=== PATIENT | female | born 1960 | race Caucasian/White ===

== ENCOUNTER 2019-10-12 18:25 | Emergency (ER) | payer MEDICAID, OTHER ==
[~2019-10-12] VITALS: Ht 152.4 cm; Wt 68.5 kg
[2019-10-12] MEDS ORDERED: IBUPROFEN 600 MG TABLET PO ONE (19:00)
[2019-10-12] MEDS ORDERED: HYDROCODONE/APAP 5-325MG TABLET PO ONE (19:00)
[2019-10-12] MEDS ORDERED: IBUPROFEN 600 MG TABLET ONE (19:03)
[2019-10-12] MEDS ORDERED: HYDROCODONE/APAP 5-325MG TABLET ONE (19:03)
--- NOTE | 2019-10-12 20:14 | NUR ---
Patient discharged to home in stable conditon with family taking patient home. Written and verbal after care instructions given. Patient verbalizes understanding of instructions. Walked out of ER with no distress noted.
[2019-10-12 20:15] VITALS: BP 135/77
== END 2019-10-12 20:15 | disposition home or self-care (01) ==
LOC: ER 18:26
DX: S20.212A Contusion of left front wall of thorax, initial encounter (principal); E78.5 Hyperlipidemia, unspecified; V43.52XA Car driver injured in collision with other type car in traffic accident, initial encounter; Y93.89 Activity, other specified; Y92.410 Unspecified street and highway as the place of occurrence of the external cause; Y99.8 Other external cause status
CPT/HCPCS: 71046; A4663

== ENCOUNTER 2020-04-25 12:33 | Emergency (ER) | payer MEDICAID, OTHER ==
[~2020-04-25] VITALS: Ht 154.9 cm; Wt 65.8 kg
[2020-04-25] MEDS ORDERED: LIDOCAINE VISCUS 2% 15 ML UDC MM ONE (13:00)
[2020-04-25] MEDS ORDERED: MAG HYDROX/AL HYDROX/SIMETH 30 ML LIQUID UDC PO ONE (13:00)
[2020-04-25] MEDS ORDERED: MAG HYDROX/AL HYDROX/SIMETH 30 ML LIQUID UDC ONE (13:13)
[2020-04-25] MEDS ORDERED: LIDOCAINE VISCUS 2% 15 ML UDC ONE (13:14)
[2020-04-25 13:43] LABS: BASOPHILS % (AUTO) 0.9 % (0.0-2.0); EOSINOPHILS % (AUTO) 0.4 % (0.0-7.0); HEMOGLOBIN 13.9 g/dL (10.9-14.3); LYMPHOCYTES # (AUTO) 1.5 K/uL (20.0-40.0); LYMPHOCYTES % (AUTO) 27.5 % (20.5-51.5); MEAN CORPUSCULAR HEMOGLOBIN 27.4 uug (24.7-32.8); MEAN CORPUSCULAR HGB CONC 33 g/dL (32.3-35.6); MEAN CORPUSCULAR VOLUME 82.8 fL (75.5-95.3); MONOCYTES # (AUTO) 0.4 K/uL (2.0-10.0); NEUTROPHILS # (AUTO) 3.5 K/uL (1.8-8.9); NEUTROPHILS % (AUTO) 64.2 % (38.5-71.5); PLATELET COUNT (AUTO) 247 K/uL (179-408); RED BLOOD CELL COUNT(AUTO) 5.07 MIL/uL (3.63-4.92); WHITE BLOOD COUNT (AUTO) 5.5 K/uL (3.8-11.8)
[2020-04-25 14:13] LABS: BILIRUBIN,DIRECT 0.2 mg/dL (0.0-0.2); BILIRUBIN,TOTAL 0.5 mg/dL (0.2-1.0); CREATININE 0.8 mg/dL (0.6-1.3); POTASSIUM 3.9 mmol/L (3.5-5.1); TOTAL PROTEIN, SERUM 7.7 g/dL (6.4-8.2)
--- NOTE | 2020-04-25 15:43 | NUR ---
Patient discharged to home in stable condition. Written and verbal after care instructions given. Patient verbalizes understanding of instructions. Stressed follow up or return to ER for worsening s/s.
[2020-04-25 15:44] VITALS: BP 129/66
== END 2020-04-25 15:46 | disposition home or self-care (01) ==
LOC: ER 12:33
DX: K29.70 Gastritis, unspecified, without bleeding (principal); K76.0 Fatty (change of) liver, not elsewhere classified; R74.0 Nonspecific elevation of levels of transaminase and lactic acid dehydrogenase [LDH]; E78.00 Pure hypercholesterolemia, unspecified
CPT/HCPCS: 36415; 70030-TC; 83690; 85025; 93005; A4663; J7030

== ENCOUNTER 2020-09-14 11:36 | Emergency (ER) | payer OTHER ==
[~2020-09-14] VITALS: Ht 154.9 cm; Wt 65.8 kg
--- NOTE | 2020-09-14 11:47 | NUR ---
Dr Coello at the bedside for MSE.
[2020-09-14 11:53] VITALS: BP 125/72
== END 2020-09-14 11:54 | disposition home or self-care (01) ==
LOC: ER 11:36
DX: R53.1 Weakness (principal); Z86.19 Personal history of other infectious and parasitic diseases; E78.00 Pure hypercholesterolemia, unspecified
CPT/HCPCS: A4663

== ENCOUNTER 2021-03-07 08:38 | Emergency (ER) | payer OTHER ==
[~2021-03-07] VITALS: Ht 154.9 cm; Wt 68.0 kg
[2021-03-07] MEDS ORDERED: IV NORMAL SALINE 1000 ML BAG IV ONE (09:15)
[2021-03-07] MEDS ORDERED: diphenhydrAMINE 50 MG/1 ML VIAL IV ONE (09:15)
[2021-03-07] MEDS ORDERED: METOCLOPRAMIDE HCL 10 MG/2 ML VIAL IV ONE (09:15)
[2021-03-07] MEDS ORDERED: METOCLOPRAMIDE HCL 10 MG/2 ML VIAL ONE (09:23)
[2021-03-07] MEDS ORDERED: diphenhydrAMINE 50 MG/1 ML VIAL ONE (09:23)
--- NOTE | 2021-03-07 09:40 | NUR ---
PATIENT CAME IN COMPLAINING OF HEADACHE WITH N/V AND DIARHEA. N/V STARTED 4AM SHE STATES.
--- NOTE | 2021-03-07 09:55 | NUR ---
PATIENT BACK FROM CT SCAN.
--- NOTE | 2021-03-07 09:55 | NUR ---
EKG OBTAINED AT THIS TIME AND CALLED LAB FOR LAB DRAWS
[2021-03-07 10:11] LABS: BASOPHILS % (AUTO) 0.2 % (0.0-2.0); EOSINOPHILS % (AUTO) 0.4 % (0.0-7.0); HEMATOCRIT 37.7 % (31.2-41.9); HEMOGLOBIN 12.5 g/dL (10.9-14.3); LYMPHOCYTES # (AUTO) 0.5 K/uL (20.0-40.0); LYMPHOCYTES % (AUTO) 4.5 % (20.5-51.5); MEAN CORPUSCULAR HEMOGLOBIN 27.6 uug (24.7-32.8); MEAN CORPUSCULAR HGB CONC 33 g/dL (32.3-35.6); MEAN CORPUSCULAR VOLUME 82.9 fL (75.5-95.3); MONOCYTES # (AUTO) 0.7 K/uL (2.0-10.0); MONOCYTES % (AUTO) 6.1 % (0.0-11.0); NEUTROPHILS # (AUTO) 10.2 K/uL (1.8-8.9); NEUTROPHILS % (AUTO) 88.8 % (38.5-71.5); PLATELET COUNT (AUTO) 209 K/uL (179-408); RED BLOOD CELL COUNT(AUTO) 4.54 MIL/uL (3.63-4.92); WHITE BLOOD COUNT (AUTO) 11.5 K/uL (3.8-11.8)
[2021-03-07 10:18] LABS: CREATININE 0.7 mg/dL (0.6-1.3); POTASSIUM 3.7 mmol/L (3.5-5.1)
[2021-03-07 10:24] LABS: BILIRUBIN,DIRECT 0.2 mg/dL (0.0-0.2); BILIRUBIN,TOTAL 0.6 mg/dL (0.2-1.0); TOTAL PROTEIN, SERUM 6.9 g/dL (6.4-8.2)
[2021-03-07] MEDS: KETOROLAC TROMETHAMINE 15 MG INJ IVP ONE ×2 (11:17→11:41)
[2021-03-07] MEDS ORDERED: KETOROLAC TROMETHAMINE 15 MG INJ ONE (11:23)
[2021-03-07] MEDS ORDERED: MECL-159 PO (11:44)
[2021-03-07] MEDS ORDERED: METO-295 PO (11:53)
--- NOTE | 2021-03-07 12:00 | NUR ---
IV DISCONTINUED, DISCHARGE PAPERWORK GIVEN AND SIGNED WITH PRESCRIPTIONS.
--- NOTE | 2021-03-07 12:01 | NUR ---
INSTRUCTED PATIENT NOT TO DRIVE. PATIENT STATES THAT COUSIN IS OUTSIDE TO DRIVE HER HOME
[2021-03-07 12:02] VITALS: BP 131/59
== END 2021-03-07 12:06 | disposition home or self-care (01) ==
LOC: ER 08:38
DX: R51.9 Headache, unspecified (principal); R11.2 Nausea with vomiting, unspecified; Z86.16 Personal history of COVID-19; E78.00 Pure hypercholesterolemia, unspecified
CPT/HCPCS: 36415; 70450; 80048; 80076; 84484; 85025; 85730; 93005; 96361; 96374; 96375; 99285; J1200; J2765; 70030-TC; A4663; J1885; J7030